=== PATIENT | male | born 1970 | race Caucasian/White ===

== ENCOUNTER 2020-04-18 16:18 | Emergency (ER) | payer OTHER, SELFPAY ==
[2020-04-18 16:36] VITALS: BP 132/90; PULSE 79; RESP 16; TEMP 36.3; O2SAT 100
--- NOTE | 2020-04-18 17:04 | ED.MALEGU ---
HPI - Male Genitourinary General Chief complaint: Urogenital-Male Stated complaint: Urogenital-male Source: patient Mode of arrival: ambulatory Limitations: no limitations History of Present Illness HPI Narrative: Patient is a 49-year-old male who presents complaining of left groin pain. Patient reports feeling the same pain while in [place] months ago and diagnosed with a UTI. He reports pain is intermittent. Denies lower back pain, denies hematuria. He denies taking anything [id number] for pain. Patient does report that he has been doing frequent lifting and bending while completing a jaquelin project in his home. He denies all other complaints. MD Complaint: other (groin pain) Related Data Home Medications Medication Instructions Recorded Confirmed buspirone 10 mg PO BID 04/18/20 04/18/20 gabapentin [Neurontin] 600 mg PO BID 04/18/20 04/18/20 hydroxyzine pamoate 50 mg PO HS 04/18/20 04/18/20 pramipexole 1 mg PO HS 04/18/20 04/18/20 quetiapine [Seroquel] 600 mg PO HS 04/18/20 04/18/20 rivaroxaban [Xarelto] 20 mg PO DAILY 04/18/20 04/18/20 tramadol [Ultram] 50 mg PO Q6H 04/18/20 04/18/20 trazodone 150 mg PO HS 04/18/20 04/18/20 zolpidem [Ambien] 10 mg PO HS 04/18/20 04/18/20 Allergies Allergy/AdvReac Type Severity Reaction Status Date / Time aspirin Allergy Severe Anaphylactic Verified 04/18/20 16:49 Shock NSAIDS (Non-Steroidal Allergy Severe Anaphylactic Verified 04/18/20 16:49 Anti-Inflamma Shock Review of Systems Review of Systems: Narrative: CONSTITUTIONAL: Denies fever, chills, or sweats. EYES: Denies visual changes, redness, or discharge. ENT: Denies rhinorrhea, congestion, sore throat, or otalgia. CARDIOVASCULAR: Denies chest pain, palpitations, or edema. RESPIRATORY: Denies cough or dyspnea. GASTROINTESTINAL: Denies abdominal pain, nausea, vomiting, or diarrhea. GENITOURINARY: Denies dysuria or hematuria, reports left groin pain. SKIN: Denies rash or itching. MUSCULOSKELETAL: Denies back pain, joint pain, or myalgia. NEUROLOGIC: Denies headache, numbness, dizziness, or weakness. PSYCHIATRIC: Denies anxiety or depression. [facility] Social History Social History (System 07/02/19 @ 09:47 by Sole Otto) Smoking status: Never smoker Gender identity (if verbalized by the patient): Male Exam Narrative: Exam Narrative: GENERAL: Well-appearing, well-nourished, and in no acute distress. HEAD: Normocephalic, atraumatic. EYES: No redness or drainage. ENT: Mucous membranes pink and moist. CHEST: No respiratory distress. GI: Soft, nontender without rebound, or guarding. No distention. Bowel sounds normal in all quadrants. : No swelling of groin or testicles MUSCULOSKELETAL: No bony tenderness. EXTREMITIES: Normal range of motion. No edema. SKIN: Warm, dry, no rash. NEURO: No focal deficits. Alert and oriented x3. Gait steady. PSYCH: Normal affect. No signs of depression or anxiety. Course Vital Signs Vital signs: Vital Signs Temperature 36.3 C L 04/18/20 16:36 Pulse Rate 79 04/18/20 16:36 Respiratory Rate 16 04/18/20 16:36 Blood Pressure 132/90 04/18/20 16:36 Pulse Oximetry 100 04/18/20 16:36 Temperature 36.3 C L 04/18/20 16:36 Pulse Rate 79 04/18/20 16:36 Respiratory Rate 16 04/18/20 16:36 Blood Pressure 132/90 04/18/20 16:36 Pulse Oximetry 100 04/18/20 16:36 MDM - Male Genitourinary MDM Narrative Medical decision making narrative: Patient's urinalysis is negative. Patient denies risk for STDs. No swelling of the testicle, no pain with palpation. Patient aware of the need for follow-up and further diagnostic testing. Patient is aware of the need to go to the emergency department if he is unable to urinate, has increased pain to the left groin. Patient is stable for discharge to home with outpatient follow-up with PCP on Tuesday as discussed. Differential Diagnosis Differential diagnosis: Likely urinary tract infection, prostatiti
== END 2020-04-18 17:21 | disposition home or self-care (01) ==
PROVIDERS: Emergency Provider Nurse Practitioner; PCP Internal Medicine
DX: R10.32 Left lower quadrant pain (principal); E78.00 Pure hypercholesterolemia, unspecified; Z86.711 Personal history of pulmonary embolism; K21.9 Gastro-esophageal reflux disease without esophagitis; F32.9 Major depressive disorder, single episode, unspecified
CPT/HCPCS: 81003; 99213; G0463

== ENCOUNTER 2022-07-23 09:41 | Emergency (ER) | payer BC, SELFPAY ==
[2022-07-23 09:52] VITALS: BP 145/89; PULSE 88; RESP 16; TEMP 36.7; O2SAT 99
--- NOTE | 2022-07-23 09:52 | ED.NAVMDI ---
HPI - Nausea/Vomiting/Diarrhea General Chief complaint: Nausea/Vomiting/Diarrhea Stated complaint: Diarrhea, vomiting Time Seen by Provider: 07/23/22 10:14 Source: patient and RN notes reviewed Mode of arrival: ambulatory Limitations: no limitations History of Present Illness HPI Narrative: 52-year-old male presents with concern for diarrhea for 8 days. Reports he was in [place] for 3 weeks on the last 2 days of his trip he ate a room service meal and immediately started vomiting. He reports since then he has been having 5-6 diarrhea stools a day. Reports any time he eats or drinks anything he has a diarrhea stool. He reports he has not vomited since the illness started. He denies any abdominal pain, fever, aches, chills, sweats. He denies bloody stools, reports occasional mucousy stools. Reports stools are burning. Patient reports his told him his eyes look yellow. Patient reports his stools are brown and not turner or juan-colored. MD elicited complaint: diarrhea Related Data Allergies Allergy/AdvReac Type Severity Reaction Status Date / Time aspirin Allergy Severe Anaphylactic Verified 07/23/22 09:44 Shock NSAIDS (Non-Steroidal Allergy Severe Anaphylactic Verified 07/23/22 09:44 Anti-Inflamma Shock Review of Systems Review of Systems: CONSTITUTIONAL: Denies malaise, chills, sweats, or fever. ENT: Denies rhinorrhea, congestion, sinus pain, otalgia or sore throat. CARDIOVASCULAR: Denies chest pain, palpitations, or edema. RESPIRATORY: Denies cough or dyspnea. GASTROINTESTINAL: Denies abdominal pain, nausea, vomiting, bloody. Reports diarrhea with occasional mucousy stools GENITOURINARY: Denies dysuria or hematuria. MUSCULOSKELETAL: Denies myalgia. NEUROLOGIC: Denies headache. All systems reviewed & are unremarkable except as noted in HPI and below PMFSH Past Medical History Medical History (Updated 07/23/22 @ 10:31 by Krystle Mckinney NP) Anxiety and depression Chronic pain Dyslipidemia Erectile dysfunction Insomnia Social History Social History (Updated 06/01/22 @ 15:08 by Nichol Abreu) Smoking status: Never smoker Alcohol intake: current Substance use: never Substance use type: does not use Lack of Transportation: No Lack of Food: Never True Current Housing: I Have Housing Concerned About Future Housing: No Difficulty Paying Gas/Electric Bills: No Difficulty Paying for Meds: No Currently Unemployed: No Education: High School Diploma/GED Difficulty w/ Childcare or Family Care: No Living arrangements: with family Occupation/Education: occupation Gender identity (if verbalized by the patient): Male Comments At time of signature, agree with nursing past medical, surgical, social and family history. There is no relevant family history pertinent to the presenting complaint Exam Narrative: GENERAL: Well-appearing, well-nourished, and in no acute distress. HEAD: Normocephalic, atraumatic. EYES: PERRLA, conjunctivae clear, and EOMI. No jaundice noted ENT: Nares clear. Mucous membranes moist. NECK: Supple. No lymphadenopathy CHEST: Speaks in full sentences. No respiratory distress. HEART: Regular rate and rhythm. ABDOMEN: Soft, flat, nondistended SKIN: Warm, dry, no rash. NEURO: Alert and oriented x3. PSYCH: Normal mood and affect Course Course Emergency Course: Discussed exam findings with patient, sclera not appear jaundiced, there is no bilirubin his urine. Advised him to make a follow-up appoint with his primary care provider next week Patient is aware of diagnosis, understands and agrees to treatment plan. Anticipatory guidance given. Patient agrees to follow-up as directed and is aware of reasons to seek care at the emergency department. Portions of this record may have been created with voice recognition software Level of Care: Express Care Visit Vital Signs Vital signs: Reviewed. MDM - Nausea/Vomiting/Diarrhea MDM Narrative Medical d
== END 2022-07-23 10:41 | disposition home or self-care (01) ==
PROVIDERS: Emergency Provider Nurse Practitioner; PCP Physician Assistant Medical
DX: R19.7 Diarrhea, unspecified (principal); E78.5 Hyperlipidemia, unspecified
CPT/HCPCS: 81003; 99213; G0463

== ENCOUNTER 2023-09-05 10:14 | Emergency (ER) | payer BC, SELFPAY ==
--- NOTE | ~2023-09-05 | US_ITS ---
EXAMINATION: US venous doppler LE RT DATE: 09/05/2023 11:26 INDICATION: Right lower limb pain. TECHNIQUE: Grayscale ultrasound images without and with compression and Doppler ultrasound images of the right lower extremity veins were obtained. COMPARISON: Ultrasound 01/18/2019 FINDINGS: The visualized portions of right common femoral vein, profunda (deep) femoral vein, femoral vein, pop liteal vein, peroneal veins, posterior tibial veins, and greater saphenous vein outflow are patent. IMPRESSION: 1. No deep venous thrombosis. Reviewed, dictated and finalized at location E.
[2023-09-05 10:28] VITALS: BP 133/78; PULSE 90; RESP 16; TEMP 36.4; O2SAT 96
[2023-09-05 10:30] VITALS: PULSE 88; RESP 15; O2SAT 95
[2023-09-05 10:31] VITALS: BP 140/85; PULSE 86; RESP 16; TEMP 36.6; O2SAT 95
--- NOTE | 2023-09-05 10:42 | ED.EXTPRO ---
HPI - Extremity Problem General Chief complaint: Extremity Problem,Nontraumatic Stated complaint: I think I have blood clots in my legs again Time Seen by Provider: 09/05/23 10:18 Source: patient Mode of arrival: ambulatory Limitations: no limitations History of Present Illness HPI Narrative: This is a 53-year-old male with history of recurrent DVT, PE who presents to the ED for chief complaint of right lower leg pain for the past week. Reports a cramping sensation to the right calf area. Reports that he travels a lot for work and was in [place] last week. He does report that he was on his feet quite a bit and was walking a lot. Admits that he does not always stay very well hydrated. States that he did have recurrent DVTs in the past but did not take his Eliquis regularly. He states over the last couple of years he takes his Eliquis 20 mg every day. denies fevers, chills, numbness, weakness, chest pain, shortness of breath. Related Data Home Medications Medication Instructions Recorded Confirmed cholecalciferol (vitamin D3) 250 250 mcg PO DAILY 07/11/23 07/11/23 mcg (10,000 unit) capsule testosterone 6 ml IM 2XW 07/11/23 07/11/23 Allergies Allergy/AdvReac Type Severity Reaction Status Date / Time aspirin Allergy Severe Anaphylactic Verified 09/05/23 10:15 Shock NSAIDS (Non-Steroidal Allergy Severe Anaphylactic Verified 09/05/23 10:15 Anti-Inflamma Shock Review of Systems Review of Systems: All systems as dictated in [facility] Past Medical History Medical History (Updated 09/05/23 @ 11:47 by Tio Vo PA-C) Anxiety and depression Chronic pain right elbow Dyslipidemia Erectile dysfunction Hypogonadism in male Insomnia Malaise and fatigue Restless leg syndrome Vitamin D deficiency Social History Social History Smoking status: Never smoker Alcohol intake: current Substance use: never Substance use type: does not use Lack of Transportation: No Lack of Food: Never True Current Housing: I Have Housing Concerned About Future Housing: No Difficulty Paying Gas/Electric Bills: No Difficulty Paying for Meds: No Currently Unemployed: No Education: High School Diploma/GED Difficulty w/ Childcare or Family Care: No Living arrangements: with family Occupation/Education: occupation Gender identity (if verbalized by the patient): Male Exam Narrative: GENERAL: Well-appearing, well-nourished, and in no acute distress. HEAD: Normocephalic, atraumatic. EYES: PERRLA and EOMI. ENT: Nares clear, no rhinorrhea or epistaxis. Mucous membranes moist. Oropharynx without tonsillar hypertrophy exudate or other lesions. NECK: Supple. No adenopathy or masses. CHEST: No respiratory distress. Clear to auscultation. No wheezes rales or rhonchi HEART: Regular rate and rhythm. No murmur heard. Normal peripheral pulses. ABDOMEN: Soft, nontender, nondistended, normal active bowel sounds. MSK: Normal range of motion. No edema. minimal tenderness throughout the bilateral lower extremities. No calf edema. No skin changes. Neurovascularly intact distally. SKIN: Warm, dry, no rash. NEURO: Alert and oriented x3. No focal deficits. PSYCH: Normal mood and affect. Course Vital Signs Vital signs: Vital Signs Temperature 97.5 F L 09/05/23 10:28 Pulse Rate 90 09/05/23 10:28 Respiratory Rate 16 09/05/23 10:28 Blood Pressure 133/78 09/05/23 10:28 Pulse Oximetry 96 09/05/23 10:28 Oxygen Delivery Room Air 09/05/23 10:28 Temperature 97.8 F 09/05/23 11:02 Pulse Rate 82 09/05/23 11:02 Respiratory Rate 13 09/05/23 11:02 Blood Pressure 128/70 09/05/23 11:02 Pulse Oximetry 96 09/05/23 11:02 Oxygen Delivery Room Air 09/05/23 10:28 MDM - Extremity (Nontraumatic) MDM Narrative Medical decision making narrative: This is a 53-year-old male who presents to the ED with ch
[2023-09-05 11:01] VITALS: BP 131/89; PULSE 84; RESP 15; O2SAT 98
[2023-09-05 11:02] VITALS: BP 128/70; PULSE 82; RESP 13; TEMP 36.6; O2SAT 96
== END 2023-09-05 11:55 | disposition home or self-care (01) ==
PROVIDERS: Emergency Provider Physician Assistant; PCP Physician Assistant Medical
DX: M79.661 Pain in right lower leg (principal); E78.5 Hyperlipidemia, unspecified; E55.9 Vitamin D deficiency, unspecified; G25.81 Restless legs syndrome; Z86.718 Personal history of other venous thrombosis and embolism; Z86.711 Personal history of pulmonary embolism; Z79.01 Long term (current) use of anticoagulants
CPT/HCPCS: 93971; 99284